=== PATIENT | female | born 1955 | race Caucasian/White ===

== ENCOUNTER 2025-05-07 08:40 | Outpatient (CLI) | payer MEDICARE | END 2025-05-07 08:41 | disposition home or self-care (01) | LOC: RAD 08:40 | PROVIDERS: ATTEND Internal Medicine Critical Care Medicine | DX: R06.00 Dyspnea, unspecified (principal); R91.8 Other nonspecific abnormal finding of lung field | CPT/HCPCS: 71046 ==